=== PATIENT | female | born 2000 | race Caucasian/White ===

== ENCOUNTER 2022-12-21 12:47 | Emergency (ER) | payer OTHER ==
[~2022-12-21] VITALS: Ht 167.6 cm; Wt 59.1 kg
[2022-12-21 12:53] VITALS: TEMP 100.2
[2022-12-21 13:27] LABS: HEMATOCRIT 40.5 % (37.0-47.0); HEMOGLOBIN 13.7 g/dl (12.5-16.0); MEAN CELL VOLUME 88 fl (80.0-100.0); MEAN CORPUSCULAR HEMOGLOBIN 30 pg (27-31); MEAN CORPUSCULAR HGB CONC 34 g/dl (33.0-37.0); MEAN PLATELET VOLUME 10.9 fl (7.4-10.4); PLATELET COUNT 202 K/mm3 (130-400); RED BLOOD COUNT 4.59 M/mm3 (4.10-5.30); REDCELL DISTRIBUTION WIDTH-CV 12.4 % (11.5-14.5)
[2022-12-21 13:45] LABS: ALBUMIN 4.4 gm/dL (3.5-5.0); BILIRUBIN,TOTAL 0.7 mg/dL (0.2-1.2); CALCIUM 10.3 mg/dL (8.4-10.2); CREATININE, serum 0.8 mg/dL (0.57-1.11); POTASSIUM 3.7 mmol/L (3.5-4.5); TOTAL PROTEIN 8.6 gm/dL (6.2-8.1)
[2022-12-21 13:47] LABS: BAND 3 % (0-10); LYMPHOCYTE 8 % (20.0-51.0); NEUTROPHILS 68 % (42.0-75.2); PLATELET ESTIMATE NORMAL (NORMAL)
[2022-12-21 14:48] LABS: COLLECTION METHOD CLEAN CATCH
[2022-12-21 14:57] LABS: MUCOUS Present (NOT PRESENT); SQUAMOUS EPITHELIAL 0-2 /hpf (0-10); URINE BACTERIA None Seen /hpf (NONE SEEN)
[2022-12-21 14:58] LABS: PH 5.5 (5.0-8.5); URINE APPEARANCE Clear (CLEAR/HAZY); URINE COLOR Amber (YELLOW); URINE PROTEIN(semi-quant) 2+ (NEGATIVE)
[2022-12-21 14:59] LABS: URINE BLOOD TRACE-INTACT (NEGATIVE); URINE GLUCOSE Negative (NEGATIVE); URINE KETONE 4+ (NEGATIVE); URINE NITRATE Negative (NEGATIVE)
[2022-12-21 15:04] LABS: STREP SCREEN NEGATIVE
[2022-12-21 15:32] LABS: MONOSCREEN NEGATIVE
[2022-12-21] MEDS ORDERED: ZOFRAN ODT4 MG PO (15:48)
[2022-12-21 16:03] VITALS: BP 130/70; PULSE 100
== END 2022-12-21 16:04 | disposition home or self-care (01) ==
LOC: COL.ER 12:47
PROVIDERS: Emergency Medicine
DX: J11.1 Influenza due to unidentified influenza virus with other respiratory manifestations (principal); Z20.822 Contact with and (suspected) exposure to COVID-19
CPT/HCPCS: J2405